=== PATIENT | male | born 1990 | race African-American/Black ===

== ENCOUNTER 2020-08-26 14:26 | Inpatient (IN) | payer MEDICAID, OTHER ==
[~2020-08-26] VITALS: Ht 170.2 cm; Wt 99.8 kg
[2020-08-26] MEDS ORDERED: MORPHINE SULFATE 4 MG/ML CPJ (NOT FOR IM USE) IV STA (16:16)
[2020-08-26] MEDS ORDERED: SODIUM CHLORIDE 0.9% 1,000 ML IV ONE (16:30)
[2020-08-26 17:28] LABS: BASOPHILS % 0.6 % (0.0-2.0); EOSINOPHILS % 0.5 % (0.0-5.0); HEMATOCRIT. 48.4 % (42.0-52.0); HEMOGLOBIN. 16.9 g/dL (14.0-18.0); LYMPHOCYTES % 18.6 % (20.0-50.0); MEAN CORPUSCULAR HEMOGLOBIN 30.6 pg (28.0-32.0); MEAN CORPUSCULAR VOLUME 87.9 fL (80.0-94.0); MONOCYTES % 4.1 % (2.0-8.0); NEUTROPHILS % 76.2 % (40.0-76.0); PLATELET 319 x1000/uL (130-400); RED BLOOD CELL COUNT 5.51 mill/uL (4.7-6.1); RED CELL DISTRIBUTION WIDTH 13.7 % (11.6-14.6)
[2020-08-26 17:35] LABS: CHLORIDE 103 mEq/L (98-107)
[2020-08-26 17:36] LABS: PROTHROMBIN TIME 10.7 sec (9.6-11.0)
[2020-08-26] MEDS ORDERED: MORPHINE SULFATE 4 MG/ML CPJ (NOT FOR IM USE) IV NR (19:15)
[2020-08-26] MEDS ORDERED: IOHEXOL-300 100 ML BOTTLE ONE (21:03)
[2020-08-27 03:30] LABS: CLARITY URINE CLEAR (CLEAR); COLOR URINE YELLOW (YELLOW); KETONES URINE TRACE (NEGATIVE); LEUKOCYTE ESTERASE URINE NEGATIVE (NEGATIVE); NITRITE URINE NEGATIVE (NEGATIVE); OCCULT BLOOD URINE NEGATIVE (NEGATIVE); PROTEIN URINE NEGATIVE (NEGATIVE); SPECIFIC GRAVITY URINE 1.046 (1.005-1.030); UROBILINOGEN URINE 0.2 E.U./dL (0.2-1.0)
[2020-08-27 03:40] LABS: *AMPHETAMINES SCREEN URINE NEGATIVE (NEGATIVE); *BARBITURATES SCREEN URINE NEGATIVE (NEGATIVE); *BENZODIAZEPINES SCREEN URINE NEGATIVE (NEGATIVE); *COCAINE SCREEN URINE NEGATIVE (NEGATIVE)
[2020-08-27 03:41] LABS: CANNABINOID URINE SCREEN PRESUMTIVE POSITIVE (NEGATIVE); METHADONE URINE SCREEN NEGATIVE (NEGATIVE); OPIATES URINE SCREEN PRESUMTIVE POSITIVE (NEGATIVE); PHENCYCLIDINE URINE SCREEN NEGATIVE (NEGATIVE)
[2020-08-27 12:00] VITALS: BP 134/81
[2020-08-27] MEDS ORDERED: DIPHENHYDRAMINE 50MG/ML VIAL IV PRN (12:45)
[2020-08-27] MEDS ORDERED: MAGNESIUM/ALUMINUM HYDROXIDE/SIMETHICONE 30ML UDC PO PRN (12:45)
[2020-08-27] MEDS ORDERED: ACETAMINOPHEN 650MG SUPP PR PRN (12:45)
[2020-08-27] MEDS ORDERED: DOCUSATE SODIUM 100MG CAPSULE PO PRN (12:45)
[2020-08-27] MEDS ORDERED: NA PHOS,M-B/NA PHOS,DI-BA ENEMA 118ML PR PRN (12:45)
[2020-08-27] MEDS ORDERED: ONDANSETRON HCL 4MG/2ML INJ IV PRN (12:45)
[2020-08-27] MEDS ORDERED: IPRATROPIUM/ALBUTEROL 0.5-3(2.5)MG/3ML NEB NEB PRN (12:45)
[2020-08-27] MEDS ORDERED: GUAIFENESIN 200MG/10ML SUGAR FREE UDC PO PRN (12:45)
[2020-08-27] MEDS ORDERED: ACETAMINOPHEN 325MG TABLET PO PRN (12:45)
[2020-08-27] MEDS ORDERED: CLONIDINE 0.1MG TABLET PO PRN (12:45)
[2020-08-27] MEDS ORDERED: LORAZEPAM 0.5MG TABLET PO PRN (12:45)
[2020-08-27 12:54] VITALS: BP 131/85
[2020-08-27] MEDS ORDERED: PIPERACILLIN/TAZ 3.375G PREMIX 50 ML IV SCH (13:00)
[2020-08-27] MEDS: HYDROCODONE/ACETAMINOPHEN 5/325MG TABLET PO PRN ×2 (13:27→21:19)
[2020-08-27 16:00] VITALS: BP 126/74
[2020-08-27 16:07] LABS: EOSINOPHILS % 3.7 % (0.0-5.0); HEMATOCRIT. 41.7 % (42.0-52.0); HEMOGLOBIN. 14.8 g/dL (14.0-18.0); LYMPHOCYTES % 41.3 % (20.0-50.0); MEAN CORPUSCULAR VOLUME 87.5 fL (80.0-94.0); MEAN PLATELET VOLUME 7.8 fl (7.4-10.4); MONOCYTES % 6.1 % (2.0-8.0); NEUTROPHILS % 47.9 % (40.0-76.0); PLATELET 263 x1000/uL (130-400); RED BLOOD CELL COUNT 4.76 mill/uL (4.7-6.1); RED CELL DISTRIBUTION WIDTH 13.7 % (11.6-14.6)
[2020-08-27 16:26] LABS: CHLORIDE 105 mEq/L (98-107)
[2020-08-27] MEDS: MORPHINE SULFATE 2 MG/ML CPJ (NOT FOR IM USE) IV PRN (18:42)
[2020-08-27 20:00] VITALS: BP 141/76
[2020-08-27] MEDS ORDERED: FAMOTIDINE 20MG TABLET PO SCH (21:00)
[2020-08-27] MEDS: PIPERACILLIN/TAZOBACTAM 3.375 G in DEXT 5% WATER 100 ML IV SCH (21:25)
[2020-08-28] VITALS: BP 141/76
[2020-08-28] MEDS: MORPHINE SULFATE 2 MG/ML CPJ (NOT FOR IM USE) IV PRN ×4 (02:27→16:27)
[2020-08-28 04:00] VITALS: BP 122/77
[2020-08-28] MEDS: PIPERACILLIN/TAZOBACTAM 3.375 G in DEXT 5% WATER 100 ML IV SCH ×3 (04:25→16:26)
[2020-08-28] MEDS: HYDROCODONE/ACETAMINOPHEN 5/325MG TABLET PO PRN (04:30)
[2020-08-28 07:28] LABS: CHLORIDE 105 mEq/L (98-107)
[2020-08-28 07:34] LABS: BASOPHILS % 0.8 % (0.0-2.0); EOSINOPHILS % 5.7 % (0.0-5.0); HEMATOCRIT. 43.1 % (42.0-52.0); HEMOGLOBIN. 14.9 g/dL (14.0-18.0); LYMPHOCYTES % 44.5 % (20.0-50.0); MEAN CORPUSCULAR HEMOGLOBIN 30.6 pg (28.0-32.0); MEAN CORPUSCULAR VOLUME 88.8 fL (80.0-94.0); MEAN PLATELET VOLUME 8.1 fl (7.4-10.4); MONOCYTES % 9.3 % (2.0-8.0); NEUTROPHILS % 39.7 % (40.0-76.0); PLATELET 254 x1000/uL (130-400); RED BLOOD CELL COUNT 4.86 mill/uL (4.7-6.1); RED CELL DISTRIBUTION WIDTH 13.5 % (11.6-14.6)
[2020-08-28 07:43] LABS: LDL CHOLESTEROL 104 mg/dL (5-100)
[2020-08-28 07:45] LABS: HDL CHOLESTEROL 40 mg/dL (40-59)
[2020-08-28 08:00] VITALS: BP 126/83
[2020-08-28 12:00] VITALS: BP 120/73
[2020-08-28] MEDS ORDERED: AMOX-424 MT (13:11)
[2020-08-28] MEDS ORDERED: HYDR-4001 MT (13:17)
[2020-08-28 16:00] VITALS: BP 124/79
[2020-08-28 16:56] VITALS: BP 124/79
== END 2020-08-28 17:50 | disposition home or self-care (01) | DRG 384 ==
LOC: ER 14:44 → 8WST 08-27 05:24 → EDBEDREQ 08-27 05:33 → EDBEDREQDT 08-27 05:33 → EDBEDREQTM 08-27 05:33 → ENRESERV 08-27 09:10 → SUPCPDRO 08-27 12:41
PROVIDERS: ADMIT Internal Medicine; ATTEND Internal Medicine
DX: S31.113A Laceration without foreign body of abdominal wall, right lower quadrant without penetration into peritoneal cavity, initial encounter (principal); L02.211 Cutaneous abscess of abdominal wall; E16.2 Hypoglycemia, unspecified; E87.1 Hypo-osmolality and hyponatremia; F17.200 Nicotine dependence, unspecified, uncomplicated; S30.1XXA Contusion of abdominal wall, initial encounter; F12.10 Cannabis abuse, uncomplicated; F10.10 Alcohol abuse, uncomplicated; Z82.49 Family history of ischemic heart disease and other diseases of the circulatory system; Z71.51 Drug abuse counseling and surveillance of drug abuser; W26.8XXA Contact with other sharp object(s), not elsewhere classified, initial encounter; Y93.89 Activity, other specified; Y92.89 Other specified places as the place of occurrence of the external cause; Y99.8 Other external cause status
CPT/HCPCS: 36415; 71045; 74177; 80053; 80061; 80305; 81003; 82962; 83605; 84145; 84439; 84443; 85025; 86850; 86900; 93005; 96374; 99285; J2270; J2543; J7030; J7060; Q9967